=== PATIENT | female | born 1970 | race Caucasian/White ===

== ENCOUNTER 2025-05-28 10:33 | Outpatient (AMB) | payer OTHER, SELFPAY ==
--- NOTE | 2025-05-28 10:37 | A.OFFPC_ITS ---
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 Intake Note: patient here for new patient visit Hand Bookbinder Required: No Is last menstrual period known: No Post menopausal: No Patient : No Allergies No Known Allergies Allergy (Verified 05/28/25 11:06) Medication List - Last Reconciled 05/28/25 by NOLBERTO Guajardo No Known Home Meds Tobacco use date assessed: 05/28/25 Dental Screening Dental Screen Date: 05/28/25 Did you have a dental visit in the last 12 months?: No Did you have a dental problem in the last 6 months where you did not have access to dental care?: No Was dental information given to patient?: No HPI HPI Comments History of Present Illness Details 54 Y/O f with DM2, cataracts, current sm oker, hx of ovarian cancer s/p chemo and surgery, Social: current 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 Health Maintenance DME 05/2025 negative for retinoapthy [facility] Colon ordered today Mammo will get done at [facility] DEXA has never had, ordered today to be done at [place] Pap 2019 at PCP office, negative per report [facility]RI[facility] History of Present Illness - The patient is a 54-year-old female pr esenting as a new patient to [facility], for a CPE and chronic dz mgmt NO MEDICAL RECORDS, OFFICE CLOSED Previous PCP: [facility] - DM2: does not want to take metformin a s her dad had bad effects; was on trulicity - Diagnosed with ovarian ca, surgically removed in 2010, tx w/ chemo; complete oophorectomy in 2011. Considered in remission. Needs new WASH DRILLER - Not on current diabetes medications; h as not seen a switching clerk since 2019. - Cataracts present; no surgery needed c urrently. - Smokes under a pack a day for over 40 years; plans for lung cancer screening. - Reports episodic increased blood press ure under stress - Pinched nerve symptoms present for one week;L arm tingling started 10 days ago comes and goes when leanig FWD can feel it along w pull in upper back Has seen chiro in the past with + effect. Health Maintenance - referral for colonoscopy - Referral for lung cancer screening - Bone density and mammogram screenings needed; to be coordinated with Dionne - Monitoring of non-surgical cataracts - Discussion of diabetes control and nee d for appropriate medication management Review of Systems - Endocrine: Reports Type 2 Diabetes Kim litus; not on current medication - Ophthalmologic: Denies diabetes-relate d eye disease; Reports cataracts - Reproductive: Reports past ovarian can cer; no recent gynecological exams - Cardiovascular: Denies regular hyperte nsion; episodic increased blood pressure with anxiety - Neurological: Reports new pinched nerv e symptom with radiating tingling sensation - Respiratory: Reports smoking history; lung cancer screening planned Physical Exam General: Well developed, well nourished, in no acute distress. Appears stated age. Head: Normocephalic, atraumatic. Eyes: Pupils are equal, round and reactive to light and accommodation. Conjunctivae are clear. Vision grossly normal. Ears: TMs clear AU, EACS WNL Nose: Patent, without discharge. Neck: Supple, no adenopathy or thyromegaly. Breast: Edu on SBE Lungs: Clear to auscultation bilaterally. No rales, rhonchi or wheeze noted. Good air flow in all dowell. Heart: Regular rate and rhythm. No murmurs, click, rubs or gallops are noted. Abdomen: Bowel sounds present in all quadrants. The abdomen is soft, nontender, with no masses or organomegaly noted. No hernias are noted. : Deferred. Reviewed recommendations for routine WASH DRILLER. Pulses: Peripheral pulses are equal and palpable bilaterally. Extremities: No clubbing, cyanosis nor edema is noted. DM foot exam complete - abnormal Neurologic: Gait and station normal. Cranial Nerves 2-12 intact. Motor strength grossly symmetrical and intact. No sensory loss. Balance normal. Skin: No rashes, ulcers, or lesions noted. Turgor is good. Skin color is good. Hair and nails are without abnormalities. Psych: Normal eye contact, affect and mood appropriate, and normal interactions. Patient is alert and appropriate to context. Results - Labs: Glycated Hemoglobin (A1c) at 7.9 % done in office today Discussion Notes I discussed with the patient the management of her Type 2 Diabetes Mellitus, highlighting the importance of glycemic control and reviewing the benefits of oral medications that might serve as alternatives to Trulicity. We talked about injectable and oral hypoglycemic agents like Invokana and Jardiance, emphasizing their non-gastrointestinal side effects, protective benefits for cardiovascular health, and renal advantages. I underscored the importance of maintaining hydration due to their mechanism and discussed DOT physical implications. We also reviewed the patient's previous and ongoing issues, including referrals for comprehensive screenings. She expressed understanding and agreed to the proposed plan for further workup and monitoring. Assessment and Plan 1. Type 2 Diabetes Mellitus - - Monitor renal function. 2. Smoking - Initiate lung cancer screening referra villagomez - Cessation encouraged 3. Ovarian Cancer History - Follow-up with EXPLOSIVE OPERATOR SUPERVISOR for monitoring, new referral today 4. Cataracts - Monitor; no surgery needed now. 5. Blood Pressure, elevated - Re-evaluate in two weeks; consider britt e monitoring. 6. Neuropathy - Focus on glucose control. Check labs today, refer for health maintenance items. Refer to chiro for L upper ext radicular pain I did look and found she can request her medical records from [email or web address] for $35 I will provide this info to her and have her request Patient Instructions - Await follow-up appointments for diagn ostic tests. - Schedule and complete lung cancer scre ening. - Continue attending regular eye exams a nd maintain current health screenings. - Keep hydrated, especially when taking any new diabetes medications. - Monitor any changes in blood pressure; report significant episodes. - Follow up in two weeks for a re-evalua tion of blood pressure. Consent Patient was informed and verbally consented to the use of an ambient scribe for clinic note documentation during this visit. An additional 60 minutes was spent addressing the problem(s) noted at todays visit. This includes time spent before the visit reviewing the chart, time spent during the visit, and time spent after the visit on documentation reviewing laboratory results, diagnostic imaging, medications, performing a medically necessary evaluation, counseling on diagnoses, care coordination, ordering appropriate tests, ordering appropriate medications, review of tests performed by other providers, reporting test results with the patient, communication with other healthcare providers. [facility] Medical History (Updated 05/28/25 @ 12:43 by Jigna Anderson, [facility]) Arthritis Ovarian cancer (~2010) Type 2 diabetes mellitus Surgical History (Updated 05/28/25 @ 11:04 by Lynn Ragsdale MA) History of excision of mass Family History (Updated 05/28/25 @ 11:02 by Lynn Ragsdale MA) Father High blood pressure Diabetes Mother Cancer Maternal Grandfather Cancer Maternal Grandmother Cancer Social History (Updated 05/28/25 @ 10:44 by Lynn Ragsdale MA) [facility]: [facility] Patient Tobacco Use Status: Current everyday Tobacco user Tobacco use type: Cigarette Cigarettes Per Day: 10 e-Cigarette/Vaping Use: Never Used Second Hand Smoke Exposure: No service: No Current occupational status: employed 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 1. Little interest or pleasure in doing things: not at all 2. Feeling down, depressed, or hopeless: not at all 3. Trouble falling or staying asleep, or sleeping too much: not at all 4. Feeling tired or having little energy: not at all 5. Poor appetite or overeating: not at all 6. Feeling bad about yourself - or that you are a failure or have let yourself or your family down: not at all 7. Trouble concentrating on things, such as reading the newspaper or watching television: not at all 8. Moving or speaking so slowly that other people could have noticed. Or the opposite - being so fidgety or restless that you have been moving around a lot more than usual: not at all 9. Thoughts that you would be better off or of hurting yourself in some way: not at all Total score: 0 Depression Screening Interpretation: Negative Depression Screening Done: Yes 26108 - PHQ-9 Billing: Yes Source: Developed by Drs. Jose Nielsen, Daphne Romero, Chilo Desouza and colleagues, with an educational mayra from [employer] Thrive Questionnaire Date Thrive assessed: 05/28/25 I am a: Patient What is your living situation today?: I have a steady place to live Within the past 12 months, did the food you bought not last and you didn't have the money to get more?: Never true Within the past 12 months, did you worry whether your food would run out before you got money to buy more?: Never true Do you have trouble paying for medicines?: I choose not to answer this question Do you have trouble getting transportation to medical appointments?: No Do you have trouble paying your heating and electricity bill?: No Do you have trouble taking care of your child, family member or friend?: No Do you have trouble with day-to-day activities such as bathing, preparing meals, shopping, managing finances, etc.?: No Are you currently unemployed and looking for a job?: No Are you interested in more education?: No Please select the resources that you would like help with: None Currently or been in a relationship where the following occur: No concerns reported THRIVE Score: 0 AUDIT C Alcohol Use Questionnaire (AUDIT-C) 1. How often do you have a drink containing alcohol?: Monthly or less 2. How many drinks containing alcohol do you have on a typical day when you are drinking?: 3 or 4 3. How often do you have six or more drinks on one occasion?: Never Total Score: 2 Score Reviewed/Action Taken: Yes OLIVA-7 AMB Questionnaire OLIVA-7 Date OLIVA - 7 assessed: 05/28/25 Feeling nervous, anxious, or on edge: 0 = Not at all Not being able to stop or control worryin = Not at all Worrying too much about different things: 0 = Not at all Trouble relaxin = Not at all Being so restless that it is hard to sit still: 0 = Not at all Becoming easily annoyed or irritable: 0 = Not at all Feeling afraid as if something awful might happen: 0 = Not at all Total OLIVA-7 score (0-4 normal; 5-9 mild; 10-14 moderate; 15-21 severe): 0 Source: Developed by Drs. Jose Nielsen, Daphne Romero, Chilo Desouza and colleagues, with an educational mayra from [employer] OLIVA-7 Assessment Billing OLIVA-7 Assessment Tool: OLIVA-7 Assessment 17170 Physical exam (Primary Care) Vital Signs: Last Vital Signs Temp 97.9 F 05/28/25 10:45 Pulse 74 05/28/25 10:45 Resp 16 05/28/25 10:45 BP 160/90 H 05/28/25 11:27 Pulse Ox 100 05/28/25 10:45 Oxygen Delivery Method Room Air 05/28/25 10:45 BMI result Body Mass Index 27.6 BMI Assessment/Plan discussion: High BMI High, discussed plan: lifestyle Tobacco/Smoking Status: Tobacco use Status Tobacco use date assessed 05/28/25 05/28/25 10:44 Patient Tobacco Use Status Current everyday Tobacco 05/28/25 10:44 Tobacco use type Cigarette 05/28/25 10:44 e-Cigarette/Vaping Use Never Used 05/28/25 10:44 Are you ready to quit: Yes Tobacco cessation counseling provided: Yes Items discussed: Nicotine replacement, QuitWorks and Other Relapse Prevention: discussed the importance of a supportive environment, discussed extending NRT, discussed negative mood or depression after quitting, weight gain after smoking is common and discussed dietary, exercise and/or lifestyle changes Number of minutes spent counselin CPT code: 66416 - 4-10 Minutes PHQ-9: PHQ-9 Score PHQ-9: Total score 0 05/28/25 11:06 Depression Screening Interpretation: Negative Thrive Assessment: Date of Thrive Assessment Date Thrive assessed 05/28/25 05/28/25 10:40 Currently or been in a relationship where the following occur: No concerns reported Office Procedures Diabetic Foot Exam Details: NORMAL MONOFILAMENT TESTING BILAT; ABNORMAL VIBRATORY SENSATION BILAT, SKIN INTACT G9226 - Diabetic Foot Exam Results AMB Hemoglobin A1c AMB Hemoglobin A1c 7.9 % Last Edit by Lynn Ragsdale MA on 05/28/25 12:22 Results Reviewed Results Reviewed: Laboratory Last Values Hgb A1c (Clinic) 7.9 % (4.0-6.0) H 05/28/25 12:11 Coding Level of Care Code New Pt Level 5 (95071) New Pt Prev Care 40-64y(34951) Diagnoses Encounter to establish care Z76.89 Cataract of both eyes, unspecified cataract type H26.9 Cataract type: unspecified Malignant neoplasm of right ovary C56.1 Laterality: right Tobacco use Z72.0 Screening for lung cancer Z12.2 Menopause Z78.0 Left cervical radiculopathy M54.12 Elevated blood pressure reading in office without diagnosis of hypertension R03.0 Diabetic mononeuropathy associated with type 2 diabetes mellitus E11.41 Diabetes mellitus complication detail: diabetic mononeuropathy Diabetes mellitus type: type 2 Diabetes mellitus type 2 with complications E11.8 Encounter for general adult medical examination with abnormal findings Z00.01 CPT Codes Diabetic Foot Exam - CPT: G9226 - Diabetic Foot Exam ([id number]) Additional Codes OLIVA-7 Assessment Billing - OLIVA-7 Assessment Tool: OLIVA-7 Assessment 30044 ([id number]) PHQ-9 - 11043 - PHQ-9 Billing: Yes ([id number]) Vital Signs *Quality* - CPT code: 28042 - 4-10 Minutes ([id number]) Assessment & Plan Assessment & Plan (1) Encounter to establish care: Code(s): Z76.89 - Persons encountering health services in other specified circumstances (2) Cataracts, bilateral: Code(s): H26.9 - Unspecified cataract Category: Medical Qualifiers: Cataract type: unspecified Qualified Code(s): H26.9 - Unspecified cataract (3) Ovarian cancer: Onset Date: ~2010 Comment: s/p bilat salpingo-oophorectomy and Chemo in remission Code(s): C56.9 - Malignant neoplasm of unspecified ovary Category: Medical Qualifiers: Laterality: right Qualified Code(s): C56.1 - Malignant neoplasm of right ovary (4) Tobacco use: Comment: smokes 18 cigs/day x 45 years LUNG CA SCREENING: REFERRED 05/28/25 Smoking Cessation How to Quit There are a lot of ways to quit smoking and many resources to help you. Family members, friends, and co-workers may be supportive or encouraging, but to be successful the desire and commitment to quit must be your own. Most people who have been able to successfully quit smoking made at least one unsuccessful attempt in the past. Try not to view past attempts to quit as failures, but rather as learning experiences. Stopping smoking or using smokeless tobacco is difficult, but anyone can do it. Know the symptoms to expect when you stop. Common symptoms include: ? An intense craving for nicotine ? Anxiety, tension, restlessness, frustration, or impatience ? Difficulty concentrating ? Drowsiness or trouble sleeping, as well as bad dreams and nightmares ? Drowsiness and trouble sleeping ? Headaches ? Increased appetite and weight gain ? Irritability or depression How severe your symptoms are depends on how long you smoked and how many cigarettes you smoked each day. Feel ready to quit? ? First and foremost, set a quit date and quit completely on that day. Before your quit date, you may begin reducing your cigarette use. But remember, there is no safe level of cigarette smoking. ? List the reasons why you want to quit. Include both short- and long-term benefits. ? Identify the times you are most likely to smoke. For example, do you tend to smoke when feeling stressed or down? When out at night with friends? While drinking coffee or alcohol? When bored? While driving? Right after a meal or sex? During a work break? While watching TV or playing cards? When you are with other smokers? ? Let all of your friends, family, and co-workers know of your plan to stop smoking and your quit date. Just being aware that they know what you're going through can be helpful, especially when you are grumpy. ? Get rid of all your cigarettes just before the quit date, and clean out anything that smells like smoke, such as clothes and furniture. Make a plan about what you will do instead of smoking at those times when you are most likely to smoke. ? Be as specific as possible. For example, drink tea instead of coffee -- tea may not trigger the desire for a cigarette. Or, take a walk when you feel stressed. ? Remove ashtrays and cigarettes from the car. Place pretzels or hard candies there instead. Pretend-smoke with a straw. ? Find activities that focus your hands and mind but are not taxing or fattening. Computer games, solitaire, knitting, sewing, and crossword puzzles may help. ? If you normally smoke after eating, find other ways to end a meal. Play a tape or CD, eat a piece of fruit, get up and make a phone call, or take a walk (a good distraction that also fenton calories). Make other changes in your lifestyle. ? Change your daily schedule and habits. Eat at different times or eat several small meals instead of three large ones. Sit in a different chair or even a different room. ? Satisfy your oral habits by eating celery or other low-calorie snack, chewing sugarless gum, or sucking on a cinnamon stick. ? Go to public places and restaurants where smoking is prohibited or restricted. ? Eat regular meals and don't eat too much candy or sweet things. ? Get more exercise. Take walks or ride a bike. Exercise helps relieve the urge to smoke. Set short-term quitting goals and reward yourself when you meet them. ? Every day, put the money you normally spend on cigarettes in a jar. Then buy something pleasurable after a period of time. ? Try not to think about all the days ahead you will need to avoid smoking. Take it one day at a time. ? Even one puff or one cigarette will make your desire for more cigarettes even stronger. However, it is normal to make mistakes. So even if you have one cigarette, you don't need to take the next one. Other tips to help you quit smoking and stick to it: ? Enroll in a smoking cessation program (hospitals, health departments, community centers, and work sites often offer programs). Learn about self-hypnosis or other techniques. ? Ask your health care provider about prescription medications that are safe and appropriate for you. ? Find out about nicotine patches, gum, and sprays. The [place] [employer]'s web site -- www.cancer.org -- is an excellent resource for smokers who are trying to quit, and the [employer] [place] [employer] can help some smokers kick the habit. Above all, don't get discouraged if you aren't able to quit smoking the first time. Nicotine addiction is a hard habit to break. Try something different next time. Develop new strategies, and try again. Many people take several attempts to finally kick the habit. Code(s): Z72.0 - Tobacco use Category: Social Hx (5) Screening for lung cancer: Code(s): Z12.2 - Encounter for screening for malignant neoplasm of respiratory organs Category: Medical (6) Menopause: Comment: DEXA ORDERED 05/2025 Code(s): Z78.0 - Asymptomatic menopausal state Category: Medical (7) Left cervical radiculopathy: Comment[facility] Code(s): M54.12 - Radiculopathy, cervical region Category: Medical (8) Elevated blood pressure reading in office without diagnosis of hypertension: Comment: REPEAT AT NEXT VISIT Code(s): R03.0 - Elevated blood-pressure reading, without diagnosis of hypertension Category: Medical (9) Diabetic neuropathy: Comment: BLE Code(s): E11.40 - Type 2 diabetes mellitus with diabetic neuropathy, unspecified Category: Medical Qualifiers: Diabetes mellitus complication detail: diabetic mononeuropathy Diabetes mellitus type: type 2 Qualified Code(s): E11.41 - Type 2 diabetes mellitus with diabetic mononeuropathy (10) Diabetes mellitus type 2 with complications: Comment: NEUROPATHY AND HYPERGLYCEMIA DM EYE 05/2025 NEGATIVE RETINOPATHY Code(s): E11.8 - Type 2 diabetes mellitus with unspecified complications Category: Medical (11) Encounter for general adult medical examination with abnormal findings: Onset Date: ~05/28/25 Code(s): Z00.01 - Encounter for general adult medical examination with abnormal findings Category: Medical Plan . Orders: Orders Complete Blood Count no Diff Today E11.9 - Type 2 diabetes mellitus without complications Microalbumin, Random (w Creat) Today E11.9 - Type 2 diabetes mellitus without complications TSH reflex Free T4 Today E11.9 - Type 2 diabetes mellitus without complications AMB Hemoglobin A1c Today E11.9 - Type 2 diabetes mellitus without complications XR DEXA axial skeleton Today Z13.820 - Encounter for screening for osteoporosis, Z78.0 - Asymptomatic menopausal state Comprehensive Met. Panel Today E11.9 - Type 2 diabetes mellitus without complications Lipid Panel Today E11.9 - Type 2 diabetes mellitus without complications Vitamin B12 and Folate Today E11.9 - Type 2 diabetes mellitus without complications Vitamin D 25-OH Total Today E11.9 - Type 2 diabetes mellitus without complications Referrals Lung Cancer Screening Referral Z12.2 - Encounter for screening for malignant neoplasm of respiratory organs, Z72.0 - Tobacco use EXPLOSIVE OPERATOR SUPERVISOR Referral Z12.4 - Encounter for screening for malignant neoplasm of cervix Gastroenterology Referral Z12.11 - Encounter for screening for malignant neoplasm of colon Chiropractic Referral M54.12 - Radiculopathy, cervical region Patient Instructions: Walk-In Care (Urgent Care): We Make it Easy Walk-in for urgent medical issues such as: ? Seasonal Allergies ? Insect Bites ? Cough ? Diarrhea ? Acute Asthma Attacks ? Back, Knee or Joint Pain ? Ear Infection ? Fever without a Rash ? Headaches ? Nausea ? [place] [facility], Rash or Skin Irritation ? Sore Throat ? Sports Physicals ? Vomiting Most insurances are accepted. Patients do not need to be part of the [facility] to seek care at the walk-in clinic. Locations [address] [facility] [place] [address] ? [phone] [facility] Care in [place] provides services to ages 18 and over. Open Sunday-Sunday: 8 a.m. to 5 p.m. and Sunday: 9 a.m. to 3 p.m.* *Hours may vary due to staffing availability. To confirm Walk-In Care hours in [place], please call [phone]. [address] [place] [id number] ? [phone] [facility] in [place] provides services to ages 12 and over. Open Sunday-Sunday: 8 a.m. to 5 p.m. Hours may vary due to staffing availability. To confirm Walk-In Care hours in [place], please call [phone]. LABORATORY SERVICES: [facility] Lab ? Primary Location [address] [place] [address] Sunday through Sunday 6:00 AM ? 5:00 PM Sunday 7:00 AM ? 11:00 AM* [phone] The [facility] Lab is centrally located near the front entrance of the [facility] for easy outpatient access. Convenient parking is provided for outpatients. *Hours may vary due to staffing availability. To confirm Laboratory hours for any location, please call [phone]. Offsite Location For your convenience, we offer offsite laboratory draw stations at the following locations: [address] [place] [address] ? [address], [address] Sunday through Sunday 7:30 AM ? 1:00 PM* [phone] *Hours may vary due to staffing availability. To confirm Laboratory hours for any location, please call [phone]. [place] ? [address] Sunday through Sunday 6:00 AM ? 3:30 PM* Sunday 6:30 AM ? 3 PM* [phone] *Hours may vary due to staffing availability. To confirm Laboratory hours for any location, please call [phone] [place] [address] Sunday through Sunday 7:30 AM ? 4:00 PM* [phone] *Hours may vary due to staffing availability. To confirm Laboratory hours for any location, please call [phone] [place] [address] Sunday through 9:00 AM ? 4:00 PM* *Hours may vary due to staffing availability. To confirm Laboratory hours for any location, please call [phone]. Appointments are not necessary. Walk-ins are welcome. Like all the departments throughout the [facility], our Lab undergoes frequent reviews to ensure the quality and accuracy of test results, and our [facility] takes special pride in its status as a nationally accredited facility. Patient Portal: ONE PATIENT. ONE RECORD. BETTER CARE. [facility] has a fully integrated, cutting- edge mobile electronic health information system that has revolutionized the way we care for our patients and manage our organization. This system improves communication and coordination enabling us to provide safe, higher-quality care, and an overall positive experience for staff and patients. Our first priority, as always, is to deliver the highest quality care possible. The system is running in the background supporting that priority. This portal is for all [facility] and [facility] services and practices. If you are experiencing any technical difficulties with enrolling or logging into the Patient Portal please complete the [facility] Patient Portal Technical Support Form. [facility] and [facility] now offers a new secure on-line interactive tool for patients to review their health information ? ?Patient Portal. This interactive web portal will enable patients and their families to take an active role in their care by providing easy, secure access to their health information via the internet. The Patient Portal provides patients with instant access to their health information, including laboratory results, medications, allergies, demographic information, visit history, and more. In addition to managing their own care, parents and health care proxies with authorized consent will appreciate the ability to access the records of those individuals for whom they provide care. Please note: if you wish to gain access (Proxy) to another patient?s portal, you will be required to come to the Medical Records Department in person at [facility]. Both the patient giving proxy access and the proxy will need to provide photo identification and complete the appropriate authorization. The Patient Portal also allows track their appointments online. The [facility] Patient Portal also saves patients time by allowing them to submit updates to their demographic and contact information prior to their visits. Portal email notifications will also alert patients to any new activity on their portal, such as test results and new appointments. In order to initially enroll in the [facility] Patient Portal, you will need to enter some required information including the following: * your [facility] Medical Record number * your personal home email address * name * date of Please note: In order to enroll in the [facility] Patient Portal, we need to have your email address on file in your electronic medical record. ?The email address needs to be specific for one person (yourself) in order for your Portal enrollment to be successful. ?You can update your email address in person with our Registration staff when you are registering for a hospital visit. ?Otherwise, you will need to come to the Health Information Management (Medical Records) Department at [facility]. ?We are open from Sunday ? Sunday from 7:30 a.m. ? 4:30 p.m. ?You will be required to present a photo id. Once you have successfully enrolled in the Patient Portal, you will receive a one-time user id and password for the Portal, sent to your email address. ?This will allow you to log into the Patient Portal within 99 hrs and reset your own logon id and password, and define personal security questions. ?Once your permanent login and password have been set, you can log into the [facility] Patient Portal at any time via the blue button above or from the Portal Logon button on any page of the [facility] website. [facility] and [facility] encourage all of our patients to enroll in Patient Portal as it presents a valuable opportunity for patients and their families to actively participate in their care and stay healthy Welcome to [facility]. ?We look forward to working with you.
[2025-05-28 10:45] VITALS: BP 203/99; PULSE 74; RESP 16; TEMP 36.6; O2SAT 100; BMI 27.6
[2025-05-28 10:59] VITALS: BP 203/95
--- OUTSIDE RECORDS SUMMARY | 2025-05-28 11:25 | XMS_ITS ---
Author Name [facility] Organization Unknown Care Team Organization Name Specialty Phone Email Start Date End Da te [facility] Termed, PROVIDER Primary Care 09/12/202206/05
[2025-05-28 11:27] VITALS: BP 160/90
== END 2025-05-28 11:38 | disposition home or self-care (01) ==
LOC: HO.HMCFM 10:34
PROVIDERS: PCP Nurse Practitioner Family; Visit Provider Nurse Practitioner Family
DX: Z00.01 Encounter for general adult medical examination with abnormal findings (principal); E11.41 Type 2 diabetes mellitus with diabetic mononeuropathy; C56.1 Malignant neoplasm of right ovary; E11.8 Type 2 diabetes mellitus with unspecified complications; H26.9 Unspecified cataract; Z12.2 Encounter for screening for malignant neoplasm of respiratory organs; Z78.0 Asymptomatic menopausal state; M54.12 Radiculopathy, cervical region; R03.0 Elevated blood-pressure reading, without diagnosis of hypertension; F17.210 Nicotine dependence, cigarettes, uncomplicated

== ENCOUNTER → 2025-05-28 10:33 | Outpatient (BNVA) | payer OTHER, SELFPAY | PROVIDERS: PCP Nurse Practitioner Family; Visit Provider Nurse Practitioner Family | DX: Z00.01 Encounter for general adult medical examination with abnormal findings (principal); Z76.89 Persons encountering health services in other specified circumstances; H26.9 Unspecified cataract; C56.1 Malignant neoplasm of right ovary; M54.12 Radiculopathy, cervical region; R03.0 Elevated blood-pressure reading, without diagnosis of hypertension; E11.41 Type 2 diabetes mellitus with diabetic mononeuropathy; E11.8 Type 2 diabetes mellitus with unspecified complications; Z72.0 Tobacco use; Z78.0 Asymptomatic menopausal state; Z13.31 Encounter for screening for depression; Z13.39 Encounter for screening examination for other mental health and behavioral disorders | CPT/HCPCS: 83036; 96127 ==

== ENCOUNTER 2025-05-28 11:42 | Outpatient (REF) | payer OTHER, SELFPAY ==
[2025-05-28 14:13] LABS: Hematocrit 51.1 % (37.0-47.0); Hemoglobin 16.8 g/dl (12.0-16.0); Mean Corpuscular HGB Conc 32.9 g/dl (31.0-35.0); Mean Corpuscular Hemoglobin 28.5 pg (27.0-33.0); Mean Corpuscular Volume 86.6 fL (80.0-98.0); NRBC Abs Auto 0.000 X10*3/uL (0.0-0.012); NRBC Pct Auto 0.0 /100WBC (0.0-0.2); Platelet Count 274 X10*3/uL (160-400); Red Blood Count 5.90 X10*6/uL (4.20-5.50); White Blood Count 10.2 X10*3/uL (4.8-10.8)
[2025-05-28 14:40] LABS: Microalbum/Creatinine Ratio Ur 20.1 ug/mg cr (<30)
[2025-05-28 14:40] LABS: Alanine Aminotransferase 18 U/L (0-31); Albumin Level 4.8 g/dL (3.5-5.0); Alkaline Phosphatase 103 U/L (39-117); Anion Gap 10 (12-20); Aspartate Amino Transferase 23 U/L (5-31); Blood Urea Nitrogen 12 mg/dL (9-16); Calcium 9.9 mg/dL (8.4-10.2); Carbon Dioxide 27 mmol/L (22-29); Chloride 104 mmol/L (96-108); Cholesterol 218 mg/dL (<200); Estimated Glomerular Filt Rate > 60; HDL Cholesterol 36 mg/dL (>40); Potassium 4.1 mmol/L (3.3-5.1); Sodium 137 mmol/L (135-145); Total Protein 8.1 g/dL (6.5-8.0); Triglycerides 199 mg/dL (<150)
[2025-05-28 14:59] LABS: Folate 5.7 ng/mL (> or = 4.0); Vitamin B12 436 pg/mL (200-900)
== END 2025-05-28 11:43 | disposition home or self-care (01) ==
LOC: HO.WFDLDS 11:42
PROVIDERS: Visit Provider Nurse Practitioner Family
DX: E11.9 Type 2 diabetes mellitus without complications (principal)
CPT/HCPCS: 36415; 80053; 80061; 82043; 82306; 82570; 82607; 82746; 84443; 85027

== ENCOUNTER 2025-06-16 09:43 | Outpatient (AMB) | payer OTHER, SELFPAY ==
--- NOTE | 2025-06-16 09:51 | MHC.PC.OV ---
Vital Signs 06/16/25 09:56 Height 5 ft 7 in Weight 175 lb BMI 27.4 BP 148/80 H Blood Pressure Location Lt brachial Position Sitting Respiration 13 Pulse 88 Pulse Source Pulse Oximeter Temp 97.0 F Temp Source Oral Pulse Oximetry (%) 98 Oxygen Delivery Method Room Air Intake Visit Reasons: 2 weeks 30 min BP recheck Intake Note: Follow up on BP. Patient is requesting naproxen for px. Patient Jardiance has been denied twice. Oil Pumper Required: No Allergies No Known Allergies Allergy (Verified 06/16/25 10:19) Medication List - Last Reconciled 06/16/25 by Jigna Anderson, [employer]- cetirizine 10 mg PO DAILY Tobacco use date assessed: 06/16/25 Dental Screening Dental Screen Date: 06/16/25 Did you have a dental visit in the last 12 months?: Yes Did you have a dental problem in the last 6 months where you did not have access to dental care?: No Was dental information given to patient?: Patient has dentist HPI HPI Comments History of Present Illness Details 54 Y/O f with DM2, cataracts, current smoker, hx of ovarian cancer s/p chemo and surgery, HLD, elevated BP Social: current smoker; 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 Health Maintenance DME 05/2025 negative for retinoapthy [facility] Colon ordered today Mammo will get done at [facility] DEXA has never had, ordered today to be done at [place] [facility] 2019 at PCP office, negative per report [facility] [employer]PER[employer] GI History of Present Illness - The patient is a 54-year-old female presenting with a follow-up for blood pressure management and diabetes medication review. - Essential Hypertension: Persistent elevation noted; past measurements in 160s, current 148/80; patient reports white coat hypertension. Taking OTC supplements to help; does not want to take meds. ACEI and ARB reviewed today; declined. - Type 2 Diabetes Mellitus: Difficulty obtaining Jardiance due to insurance; previously tried metformin, glyburide with minimal effect; & Trulicity. - Hyperlipidemia: Recent labs show elevated cholesterol; does not want to take medications; ok w/ supplements. Reducing cigarette intake using a flavored air alternative. - Musculoskeletal Complaint: Left arm, fingertip numbness, related to back pain; chiropractor visit scheduled today. used naproxen 500mg in the past + effect, would like refill - Allergies controlled on cetrizine; needs refill - [facility] records requested; not rec'd yet Review of Systems - Cardiovascular: Reports elevated blood pressure levels. - Neurological: Reports numbness in the left arm and fingertips. - Endocrinology: Reports issues with blood sugar management. - Musculoskeletal: Reports back pain. - Allergies/Immunology: History of previous cetirizine use instead of Zyrtec. Physical Exam General: Well developed, well nourished, in no acute distress. Appears stated age. Head: Normocephalic, atraumatic. Eyes: Pupils are equal, round and reactive to light and accommodation. Conjunctivae are clear. Vision grossly normal. Lungs: Clear to auscultation bilaterally. No rales, rhonchi or wheeze noted. Good air flow in all dowell. Heart: Regular rate and rhythm. No murmurs, click, rubs or gallops are noted. Pulses: Peripheral pulses are equal and palpable bilaterally. Extremities: No clubbing, cyanosis nor edema is noted. Psych: Mood and affect appropriate Results see below 05/2025 - Labs: Recent cholesterol levels were slightly elevated; other labs, including thyroid and kidney function, were normal. - Labs: Recent cholesterol levels were slightly elevated; other labs, including thyroid and kidney function, were normal. Discussion Notes The patient and I discussed her elevated blood pressure and the potential consequences of uncontrolled hypertension on her kidneys, eyes, and heart. I recommended starting a low-dose antihypertensive to help with both blood pressure control and renal protection due to diabetes, mentioning lisinopril or losartan as options. We spoke about the insurance issues regarding her diabetes medications and I suggested a possible referral to endocrinology for a specialized opinion, which might influence her insurance's reassessment of coverage. We discussed lifestyle changes and support for hyperlipidemia, introducing the option of Fayette bergamot as a natural remedy. I have refilled her cetirizine and naproxen prescriptions. The need for a repeat cholesterol panel and comprehensive review in three months was communicated, and the patient consented to all recommendations. Patient was given time to ask questions. All questions were answered to their satisfaction. Assessment and Plan 1. Essential Hypertension - Low-dose antihypertensive recommended. Declined - cont supplements and home monitoring - Follow-up in three months with labs. 2. Type 2 Diabetes Mellitus - Endocrinology referral d/t insurance issues w/ meds 3. Hyperlipidemia - Diet modification encouraged. - Trial Fayette bergamot. - Cholesterol check in three months. 4. Musculoskeletal Complaint - Chiropractic visit scheduled. - refill naproxen. 5. smoking cessation applauded, cont alternative measures 6. allergies, cetrizine RX sent in as requested. Patient Instructions - Start a low-dose antihypertensive as prescribed. - Monitor blood pressure at home and record readings. - Make dietary changes to reduce cholesterol; eat more vegetables and fiber, and less sugar. - Start Fayette bergamot as instructed. - Visit the chiropractor as scheduled. - Take naproxen and cetirizine as prescribed. - Return for lab work and follow-up visit in three months, sooner PRN Consent Patient was informed and verbally consented to the use of an ambient scribe for clinic note documentation during this visit. Total time spent caring for the patient today was 40 minutes. This includes time spent before the visit reviewing the chart, time spent during the visit, and time spent after the visit on documentation, reviewing laboratory results, diagnostic imaging, medications, performing a medically necessary evaluation, counseling on diagnoses, care coordination, ordering appropriate tests, ordering appropriate medications, review of tests performed by other providers, reporting test results with the patient, communication with other healthcare providers. [facility] Medical History (Updated 06/16/25 @ 10:44 by Jigna Anderson, [facility]) Arthritis Ovarian cancer (~2010) Type 2 diabetes mellitus Surgical History (Updated 05/28/25 @ 11:04 by Lynn Ragsdale MA) History of excision of mass Family History (Updated 05/28/25 @ 11:02 by Lynn Ragsdale MA) Father High blood pressure Diabetes Mother Cancer Maternal Grandfather Cancer Maternal Grandmother Cancer Social History (Updated 05/28/25 @ 10:44 by Lynn Ragsdale MA) Housing: Other ([facility] home) Patient Tobacco Use Status: Current everyday Tobacco user Tobacco use type: Cigarette Cigarettes Per Day: 10 e-Cigarette/Vaping Use: Never Used Second Hand Smoke Exposure: No service: No Current occupational status: employed 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 1. Little interest or pleasure in doing things: not at all 2. Feeling down, depressed, or hopeless: not at all 3. Trouble falling or staying asleep, or sleeping too much: not at all 4. Feeling tired or having little energy: not at all 5. Poor appetite or overeating: not at all 6. Feeling bad about yourself - or that you are a failure or have let yourself or your family down: not at all 7. Trouble concentrating on things, such as reading the newspaper or watching television: not at all 8. Moving or speaking so slowly that other people could have noticed. Or the opposite - being so fidgety or restless that you have been moving around a lot more than usual: not at all 9. Thoughts that you would be better off or of hurting yourself in some way: not at all Total score: 0 Depression Screening Interpretation: Negative Depression Screening Done: Yes 40654 - PHQ-9 Billing: Yes Source: Developed by Drs. Jose Nielsen, Daphne Romero, Chilo Desouza and colleagues, with an educational mayra from [employer] Thrive Questionnaire Date Thrive assessed: 06/16/25 I am a: Patient What is your living situation today?: I have a steady place to live Within the past 12 months, did the food you bought not last and you didn't have the money to get more?: Never true Within the past 12 months, did you worry whether your food would run out before you got money to buy more?: Never true Do you have trouble paying for medicines?: I choose not to answer this question Do you have trouble getting transportation to medical appointments?: No Do you have trouble paying your heating and electricity bill?: No Do you have trouble taking care of your child, family member or friend?: No Do you have trouble with day-to-day activities such as bathing, preparing meals, shopping, managing finances, etc.?: No Are you currently unemployed and looking for a job?: No Are you interested in more education?: No Please select the resources that you would like help with: None Currently or been in a relationship where the following occur: No concerns reported THRIVE Score: 0 OLIVA-7 AMB Questionnaire OLIVA-7 Date OLIVA - 7 assessed: 06/16/25 Feeling nervous, anxious, or on edge: 0 = Not at all Not being able to stop or control worryin = Not at all Worrying too much about different things: 0 = Not at all Trouble relaxin = Not at all Being so restless that it is hard to sit still: 0 = Not at all Becoming easily annoyed or irritable: 0 = Not at all Feeling afraid as if something awful might happen: 0 = Not at all Total OLIVA-7 score (0-4 normal; 5-9 mild; 10-14 moderate; 15-21 severe): 0 Source: Developed by Drs. Jose Nielsen, Daphne Romero, Chilo Desouza and colleagues, with an educational mayra from [employer] OLIVA-7 Assessment Billing OLIVA-7 Assessment Tool: OLIVA-7 Assessment 50227 Physical exam (Primary Care) Vital Signs: Last Vital Signs Temp 97.0 F 06/16/25 09:56 Pulse 88 06/16/25 09:56 Resp 13 06/16/25 09:56 BP 148/80 H 06/16/25 09:56 Pulse Ox 98 06/16/25 09:56 Oxygen Delivery Method Room Air 06/16/25 09:56 BMI result Body Mass Index 27.4 Tobacco/Smoking Status: Tobacco use Status Tobacco use date assessed 06/16/25 06/16/25 09:53 Patient Tobacco Use Status Current everyday Tobacco 06/16/25 09:53 Tobacco use type Cigarette 06/16/25 09:53 e-Cigarette/Vaping Use Never Used 06/16/25 09:53 Are you ready to quit: Yes Tobacco cessation counseling provided: Yes Items discussed: Nicotine replacement, QuitWorks and Other Relapse Prevention: discussed the importance of a supportive environment, discussed extending NRT, discussed negative mood or depression after quitting, weight gain after smoking is common and discussed dietary, exercise and/or lifestyle changes Number of minutes spent counselin CPT code: 75701 - 4-10 Minutes PHQ-9: PHQ-9 Score PHQ-9: Total score 0 06/16/25 09:53 Depression Screening Interpretation: Negative Thrive Assessment: Date of Thrive Assessment Date Thrive assessed 06/16/25 06/16/25 09:53 Currently or been in a relationship where the following occur: No concerns reported Results Reviewed Results Reviewed: 05/28/25 Laboratory Result Units Range Interpretation Provider Comments White Blood Count 10.2 X10*3/uL (4.8-10.8) Red Blood Count 5.90 X10*6/uL (4.20-5.50) High Hemoglobin 16.8 g/dl (12.0-16.0) High Hematocrit 51.1 % (37.0-47.0) High Mean Corpuscular Volume 86.6 fL (80.0-98.0) Mean Corpuscular Hemoglobin 28.5 pg (27.0-33.0) Mean Corpuscular Hemoglobin Concent 32.9 g/dl (31.0-35.0) Red Cell Distribution Width 14.1 % (11.0-16.0) Platelet Count 274 X10*3/uL (160-400) Mean Platelet Volume 10.6 fL (9.4-12.3) Nucleated RBC Absolute Count (auto) 0.000 X10*3/uL (0.0-0.012) Nucleated Red Blood Cells % (auto) 0.0 /100WBC (0.0-0.2) Sodium Level 137 mmol/L (135-145) Potassium Level 4.1 mmol/L (3.3-5.1) Chloride Level 104 mmol/L (96-108) Carbon Dioxide Level 27 mmol/L (22-29) Anion Gap 10 (12-20) Low Blood Urea Nitrogen 12 mg/dL (9-16) Creatinine 0.61 mg/dL (0.5-1.4) Estimated Creatinine Clearance Calc Not Reportable Estimat Glomerular Filtration Rate > 60 Random Glucose 160 mg/dL (60-115) High Calcium Level 9.9 mg/dL (8.4-10.2) Total Bilirubin 0.8 mg/dL (0.0-1.0) Aspartate Amino Transf (AST/SGOT) 23 U/L (5-31) Alanine Aminotransferase (ALT/SGPT) 18 U/L (0-31) Alkaline Phosphatase 103 U/L (39-117) Total Protein 8.1 g/dL (6.5-8.0) High Albumin 4.8 g/dL (3.5-5.0) Triglycerides Level 199 mg/dL (<150) High Cholesterol Level 218 mg/dL (<200) High LDL Cholesterol, Calculated 143 mg/dL (<100) High HDL Cholesterol 36 mg/dL (>40) Low Vitamin B12 Level 436 pg/mL (200-900) 25-Hydroxy Vitamin D Total 71.9 ng/mL (>30) Folate 5.7 ng/mL (> or = 4.0) Thyroid Stimulating Hormone (TSH) 1.52 uIU/mL (0.32-4.0) Urine Creatinine 69.40 mg/dL Urine Microalbumin 14.0 mg/L Urine Microalbumin/Creatinine Ratio 20.1 ug/mg cr (<30) Coding Level of Care Code Est Pt Level 5 (27253) Complex EM visit Add On G2211 Diagnoses Diabetes mellitus type 2 with complications E11.8 Mixed hyperlipidemia E78.2 Hyperlipidemia type: mixed hyperlipidemia Elevated blood pressure reading in office without diagnosis of hypertension R03.0 Tobacco use Z72.0 Left cervical radiculopathy M54.12 Environmental allergies Z91.09 Additional Codes OLIVA-7 Assessment Billing - OLIVA-7 Assessment Tool: OLIVA-7 Assessment 88530 ([id number]) PHQ-9 - 53248 - PHQ-9 Billing: Yes ([id number]) Vital Signs *Quality* - CPT code: 70777 - 4-10 Minutes ([id number]) Assessment & Plan Assessment & Plan (1) Diabetes mellitus type 2 with complications: Comment: NEUROPATHY AND HYPERGLYCEMIA DM EYE 05/2025 NEGATIVE RETINOPATHY Code(s): E11.8 - Type 2 diabetes mellitus with unspecified complications Category: Medical (2) HLD (hyperlipidemia): Comment: will trial citrus bergamot Code(s): E78.5 - Hyperlipidemia, unspecified Category: Medical Qualifiers: Hyperlipidemia type: mixed hyperlipidemia Qualified Code(s): E78.2 - Mixed hyperlipidemia (3) Elevated blood pressure reading in office without diagnosis of hypertension: Comment: Beet Extract and Oil of Oregano to help Prefers natural methods Code(s): R03.0 - Elevated blood-pressure reading, without diagnosis of hypertension Category: Medical (4) Tobacco use: Comment: smokes 18 cigs/day x 45 years LUNG CA SCREENING: REFERRED 05/28/25 Smoking Cessation How to Quit There are a lot of ways to quit smoking and many resources to help you. Family members, friends, and co-workers may be supportive or encouraging, but to be successful the desire and commitment to quit must be your own. Most people who have been able to successfully quit smoking made at least one unsuccessful attempt in the past. Try not to view past attempts to quit as failures, but rather as learning experiences. Stopping smoking or using smokeless tobacco is difficult, but anyone can do it. Know the symptoms to expect when you stop. Common symptoms include: ? An intense craving for nicotine ? Anxiety, tension, restlessness, frustration, or impatience ? Difficulty concentrating ? Drowsiness or trouble sleeping, as well as bad dreams and nightmares ? Drowsiness and trouble sleeping ? Headaches ? Increased appetite and weight gain ? Irritability or depression How severe your symptoms are depends on how long you smoked and how many cigarettes you smoked each day. Feel ready to quit? ? First and foremost, set a quit date and quit completely on that day. Before your quit date, you may begin reducing your cigarette use. But remember, there is no safe level of cigarette smoking. ? List the reasons why you want to quit. Include both short- and long-term benefits. ? Identify the times you are most likely to smoke. For example, do you tend to smoke when feeling stressed or down? When out at night with friends? While drinking coffee or alcohol? When bored? While driving? Right after a meal or sex? During a work break? While watching TV or playing cards? When you are with other smokers? ? Let all of your friends, family, and co-workers know of your plan to stop smoking and your quit date. Just being aware that they know what you're going through can be helpful, especially when you are grumpy. ? Get rid of all your cigarettes just before the quit date, and clean out anything that smells like smoke, such as clothes and furniture. Make a plan about what you will do instead of smoking at those times when you are most likely to smoke. ? Be as specific as possible. For example, drink tea instead of coffee -- tea may not trigger the desire for a cigarette. Or, take a walk when you feel stressed. ? Remove ashtrays and cigarettes from the car. Place pretzels or hard candies there instead. Pretend-smoke with a straw. ? Find activities that focus your hands and mind but are not taxing or fattening. Computer games, solitaire, knitting, sewing, and crossword puzzles may help. ? If you normally smoke after eating, find other ways to end a meal. Play a tape or CD, eat a piece of fruit, get up and make a phone call, or take a walk (a good distraction that also fenton calories). Make other changes in your lifestyle. ? Change your daily schedule and habits. Eat at different times or eat several small meals instead of three large ones. Sit in a different chair or even a different room. ? Satisfy your oral habits by eating celery or other low-calorie snack, chewing sugarless gum, or sucking on a cinnamon stick. ? Go to public places and restaurants where smoking is prohibited or restricted. ? Eat regular meals and don't eat too much candy or sweet things. ? Get more exercise. Take walks or ride a bike. Exercise helps relieve the urge to smoke. Set short-term quitting goals and reward yourself when you meet them. ? Every day, put the money you normally spend on cigarettes in a jar. Then buy something pleasurable after a period of time. ? Try not to think about all the days ahead you will need to avoid smoking. Take it one day at a time. ? Even one puff or one cigarette will make your desire for more cigarettes even stronger. However, it is normal to make mistakes. So even if you have one cigarette, you don't need to take the next one. Other tips to help you quit smoking and stick to it: ? Enroll in a smoking cessation program (hospitals, health departments, community centers, and work sites often offer programs). Learn about self-hypnosis or other techniques. ? Ask your health care provider about prescription medications that are safe and appropriate for you. ? Find out about nicotine patches, gum, and sprays. The [place] [employer]'s web site -- www.cancer.org -- is an excellent resource for smokers who are trying to quit, and the [employer] [place] [employer] can help some smokers kick the habit. Above all, don't get discouraged if you aren't able to quit smoking the first time. Nicotine addiction is a hard habit to break. Try something different next time. Develop new strategies, and try again. Many people take several attempts to finally kick the habit. Code(s): Cristy72.0 - Tobacco use Category: Social Hx (5) Left cervical radiculopathy: Comment: REFER TO CHIRO Code(s): M54.12 - Radiculopathy, cervical region Category: Medical (6) Environmental allergies: Code(s): Z91.09 - Other allergy status, other than to drugs and biological substances Category: Medical Plan . Orders: Orders Lipid Panel 3 Months E11.8 - Type 2 diabetes mellitus with unspecified complications, E78.2 - Mixed hyperlipidemia Comprehensive Met. Panel 3 Months E11.8 - Type 2 diabetes mellitus with unspecified complications, E78.2 - Mixed hyperlipidemia Referrals Endocrinology Referral E11.8 - Type 2 diabetes mellitus with unspecified complications Medications: New cetirizine 10 mg PO DAILY 90 tabs 2RF naproxen 500 mg PO BID PRN 180 tabs 2RF pain Patient Instructions: Fayette Bergamot 1000mg Daily To reduce low-density lipoprotein (LDL) cholesterol, you can try making lifestyle changes to your diet, exercise, and other habits: Eat a heart-healthy diet Limit saturated and trans fats, and eat more foods with healthy fats, like nuts, seeds, and unsaturated oils. You can also try eating more soluble fiber, which can help reduce the amount of cholesterol your body absorbs. Foods high in soluble fiber include whole grains, fruits, and legumes. Exercise regularly Aim for at least 150 minutes of exercise per week, such as walking, swimming, or cycling. Maintain a healthy weight Losing weight can help lower LDL cholesterol, especially if you are overweight or obese. Manage stress Chronic stress can raise LDL cholesterol, so try to find healthy ways to manage it. Quit smoking Smoking can raise cholesterol and increase the risk of serious health problems. Get enough sleep Aim for 7 to 9 hours of sleep per night. You should also limit foods with cholesterol, which are found in animal products like liver, egg yolks, and whole milk dairy products.
[2025-06-16 09:56] VITALS: BP 148/80; PULSE 88; RESP 13; TEMP 36.1; O2SAT 98; BMI 27.4
== END 2025-06-16 10:38 | disposition home or self-care (01) ==
LOC: HO.HMCFM 09:44
PROVIDERS: PCP Nurse Practitioner Family; Visit Provider Nurse Practitioner Family
DX: E11.8 Type 2 diabetes mellitus with unspecified complications (principal); E78.2 Mixed hyperlipidemia; R03.0 Elevated blood-pressure reading, without diagnosis of hypertension; F17.210 Nicotine dependence, cigarettes, uncomplicated; M54.12 Radiculopathy, cervical region; Z91.09 Other allergy status, other than to drugs and biological substances

== ENCOUNTER → 2025-06-16 09:43 | Outpatient (BNVA) | payer OTHER, SELFPAY | PROVIDERS: PCP Nurse Practitioner Family; Visit Provider Nurse Practitioner Family | DX: E11.9 Type 2 diabetes mellitus without complications (principal); E78.2 Mixed hyperlipidemia; I10 Essential (primary) hypertension; M54.9 Dorsalgia, unspecified; R03.0 Elevated blood-pressure reading, without diagnosis of hypertension; M54.12 Radiculopathy, cervical region; F17.210 Nicotine dependence, cigarettes, uncomplicated; Z91.09 Other allergy status, other than to drugs and biological substances | CPT/HCPCS: 96127 ==

== ENCOUNTER 2025-07-10 10:36 | Outpatient (AMB) | payer OTHER, SELFPAY ==
--- NOTE | 2025-07-10 10:52 | MHC.OFFVIS ---
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 Endo: She was diagnosed with diabetes around 2016. Around that time she was 259 lb and she has lost about 85 lb with diet and exercise. She was also put on Trulicity which she found very effective for her diabetes. She says that she did not have any adverse effects with this medication. She was previously tried glyburide but was ineffective and caused dizziness. She took her father's metformin a couple times and had GI upset. She was effectively treated with trulicity. She is up-to-date with ophthalmology and states that she does not have any changes in the eye. CV: Blood pressure today in the office is 178/100. She is not currently on any antihypertensives. She says that she has never been on antihypertensives but her blood pressure has been borderline in the past. She says when she was on Trulicity in the past that seemed like everything got better. [facility] Medical History (Updated 07/10/25 @ 11:28 by Mitra Davis PA-C) Arthritis Type 2 diabetes mellitus Ovarian cancer (~2010) Surgical History History of excision of mass Family History Father High blood pressure Diabetes Mother Cancer Maternal Grandfather Cancer Maternal Grandmother Cancer Social History Housing: Other (mobil home) Patient Tobacco Use Status: Current everyday Tobacco user Tobacco use type: Cigarette Cigarettes Per Day: 10 e-Cigarette/Vaping Use: Never Used Second Hand Smoke Exposure: No service: No Current occupational status: employed 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 Current occupational exposures/hazards: No Cognitive needs: No Hearing needs: No Vision needs: Yes Physical Exam Vital Signs: Last Vital Signs Pulse 84 07/10/25 10:59 BP 178/100 H 07/10/25 10:59 Pulse Ox 98 07/10/25 10:59 Oxygen Delivery Method Room Air 07/10/25 10:59 BMI result Body Mass Index 27.6 Const Orientation/consciousness: patient oriented x3 Neck Neck: Yes no lymphadenopathy Thyroid: Thyroid normal Carotids: no bruits Resp Auscultation: clear to auscultation bilaterally Cardio Rate: regular rate Rhythm: regular rhythm Heart sounds: S1 normal heart sound present and S2 normal heart sound present Peripheral pulses: dorsalis pedis present Neuro General: patient oriented x3, gait normal and no focal motor deficits Extrem Other: Monofilament sensation intact bilaterally. Vibratory sensation intact bilaterally. Skin intact. General: Yes normal to inspection Results Reviewed Results Reviewed: Laboratory Last Values Glucose (Clinic) 316 mg/dL (60-115) H 07/10/25 11:04 Assessment & Plan Assessment & Plan (1) Diabetes mellitus type 2 with complications: Comment: NEUROPATHY AND HYPERGLYCEMIA DM EYE 05/2025 NEGATIVE RETINOPATHY Code(s): E11.8 - Type 2 diabetes mellitus with unspecified complications Category: Medical Plan: We spent 75 minutes in direct patient care, [id number] time, coordination of care, chart review, and note dictation. We reviewed the pathophysiology of type 2 diabetes, complications associated with diabetes including but not limited to blindness, amputation wrists, kidney disease, increased risk of stroke and heart attack etc.. We will start Trulicity. Discussed risks and benefits and adverse effects of this medication. She reports having testing supplies at home. We reviewed rule of 15 and how to treat low blood sugars. Reviewed signs and symptoms of hyper and hypoglycemia that would require emergent medical treatment (2) HTN (hypertension): Code(s): I10 - Essential (primary) hypertension Category: Medical Plan: Elevated today. Currently asymptomatic. We will start lisinopril. We reviewed risks and benefits and adverse effects of this medication. Short term follow up arranged. Labs prior to appointment. Orders: Orders Basic Metabolic Panel Today E11.8 - Type 2 diabetes mellitus with unspecified complications, I10 - Essential (primary) hypertension Hemoglobin A1c Today E11.8 - Type 2 diabetes mellitus with unspecified complications, I10 - Essential (primary) hypertension, R73.01 - Impaired fasting glucose Microalbumin, Random (w Creat) Today E11.8 - Type 2 diabetes mellitus with unspecified complications, I10 - Essential (primary) hypertension Medications: New dulaglutide (Trulicity) 0.75 mg (0.5 mL) subcut QWEEK 2 mL 5RF lisinopril 10 mg PO DAILY 90 tabs 0RF Coding Level of Care Code New Pt Level 5 (24474) Complex EM visit Add On G2211 Diagnoses Diabetes mellitus type 2 with complications E11.8 HTN (hypertension) I10
[2025-07-10 10:59] VITALS: BP 178/100; PULSE 84; O2SAT 98; BMI 27.6
[2025-07-10 11:08] LABS: Glucose, Whole Blood 316 mg/dL (60-115)
== END 2025-07-10 11:33 | disposition home or self-care (01) ==
LOC: HO.ENCR 10:37
PROVIDERS: PCP Nurse Practitioner Family; Visit Provider Physician Assistant
DX: E11.8 Type 2 diabetes mellitus with unspecified complications (principal); I10 Essential (primary) hypertension

== ENCOUNTER → 2025-07-10 10:36 | Outpatient (BNVA) | payer OTHER, SELFPAY | PROVIDERS: PCP Nurse Practitioner Family; Visit Provider Physician Assistant | DX: E11.65 Type 2 diabetes mellitus with hyperglycemia (principal); I10 Essential (primary) hypertension | CPT/HCPCS: 82947 ==

== ENCOUNTER 2025-09-25 09:57 | Outpatient (AMB) | payer OTHER, SELFPAY ==
--- NOTE | 2025-09-25 08:03 | A.OFFVIS_ITS ---
Intake Visit Reasons: Current Smoker Allergies No Known Allergies Allergy (Verified 07/10/25 11:02) HPI HPI Current Smoker: Details: Initial visit for this 55yo smoker with a 35PYH. Patient started smoking at age 11 for 44 years at 3/4-1ppd. Currently 3/4ppd. . Denies marijuana use. Denies second hand smoke exposure. Denies exposure to chemicals or substances like asbestos. . Denies known family history of lung cancer. Reports personal history of Ovarian cancer. s/p bilateral salpingo-oophorectomy and Chemo- in remission - 2010. Denies chest CT in last year. . Denies recent travel outside the [place]. Denies recent respiratory illness or recent hospitalization for respiratory issues. Denies testing positive for COVID. Denies receiving COVID Vaccine. . Denies fever, chills, new/worsening cough, hemoptysis, hoarseness or dysphagia. Denies significant chest pain, significant dyspnea or unintentional weight loss. Patient Lung Cancer Screening Questionnaire reviewed with patient by provider. . Shared Decision Making Completed. Patient meets criteria. Discussed in detail with patient, the risk vs benefit of LDCT screening. Patient consents to proceed with scan. Discussed smoking cessation. . Patient does report snoring. She has multiple risk factors for MENDY including >50yo, DM2, new HTN, smoking. We discussed that she discuss sleep study with PCP to further assess for sleep apnea. [facility] Medical History (Updated 09/25/25 @ 10:28 by Tania Pringle PA-C) HTN (hypertension) History of ovarian cancer (~2010) Nicotine dependence, cigarettes, uncomplicated Arthritis Type 2 diabetes mellitus Surgical History (Updated 09/25/25 @ 10:11 by Tania Pringle PA-C) History of left salpingo-oophorectomy History of right salpingo-oophorectomy History of appendectomy Family History (Updated 09/25/25 @ 10:28 by Tania Pringle PA-C) Father High blood pressure Diabetes Mother Cancer Sleep apnea Maternal Grandfather Cancer Maternal Grandmother Cancer Social History [facility]: Other ([email or web address]) Patient Tobacco Use Status: Current everyday Tobacco user Tobacco use type: Cigarette Cigarettes Per Day: 10 e-Cigarette/Vaping Use: Never Used Second Hand Smoke Exposure: No service: No Current occupational status: employed 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 - Patient meets criteria for LDCT for lung cancer screening purposes and is asymptomatic. - Smoking cessation counseling offered. Patients can always call [phone]. - Will arrange for a LDCT scan of the chest for screening purposes at [facility]. - Risks, benefits, and alternatives were discussed in detail and the patient agrees to proceed. - Risks discussed include but are not limited to: radiation exposure, anxiety during testing and while awaiting results, false negatives, false positives and possibility of additional intervention such as further imaging or surgical procedures for benign disease. - Benefits are obviously detection of lung cancer at an early stage which can lead to improved outcomes. - Discussed the importance of screening program compliance with adherence to yearly LDCT scan as scheduled - or sooner interval scans for personalized screening regimen. - Discussed follow up plan. Our office will send a letter discussing results and if needed set up phone call and office visit based on CT findings. - Patient educated on results categorization and the management decisions for suspicious findings potentially found on the screening LDCT scan. Any patient with a Lung RADS score of 3 or 4 will be reviewed by a multidisciplinary team at [facility] to form a plan of action in regards to scan findings. - If further work up is warranted for a suspicious lung finding this will be followed by the Lung Cancer Screening program in conjunction with the Thoracic Surgery Department at [facility]. - A copy of the office note and LDCT will be sent to the patient's PCP - as well as documentation on any associated further plans of care. - Incidental findings on LDCT are the PCP's responsibility. These findings are indicated with an S finding on the LDCT Assessment. A note discussing the findings will be sent to the PCP who is then responsible for further management. - All questions answered.? Coding Level of Care Code Lung Cancer Screening G0296 Diagnoses Nicotine dependence, cigarettes, uncomplicated F17.210
== END 2025-09-25 10:41 | disposition home or self-care (01) ==
LOC: HO.HPS 09:58
PROVIDERS: PCP Nurse Practitioner Family; Referring Provider Nurse Practitioner Family; Visit Provider Physician Assistant Medical
DX: F17.210 Nicotine dependence, cigarettes, uncomplicated (principal)
CPT/HCPCS: G0296

== ENCOUNTER 2025-09-25 10:23 | Outpatient (REF) | payer OTHER, SELFPAY ==
--- NOTE | ~2025-09-25 | CT_ITS ---
EXAMINATION: CT LOW-DOSE SCREENING CHEST WITHOUT CONTRAST CLINICAL INFORMATION: 55-year-old female, current smoker, 43 pack years, lung cancer screening. COMPARISON: None available. TECHNIQUE: Multidetector volumetric CT imaging of the chest is performed on a Siemens SOMATOM Definition scanner without contrast using low dose technique. Additional 2D coronal and sagittal reformatted images and axial 3D maximum intensity projection (MIP) images are generated on the CT workstation. This CT examination was performed using dose optimization techniques as appropriate, variously including the following: *Automated exposure control *Adjustment of mA and/or kV according to patient size (this includes techniques or standardized protocols for targeted exams where dose is matched to indication/reason for exam; i.e. extremities or head) *Use of iterative reconstruction technique FINDINGS: PULMONARY NODULES: 3 mm nodule right apex (series 3, image 64). 2 mm nodule right apex (series 3, image 70). LUNGS: Lungs well inspired. Mild paraseptal emphysema is present. Lungs otherwise clear. No abnormal opacities. Small airways appear normal. No effusion or pneumothorax. MEDIASTINUM: There is mild global enlargement of the thyroid gland with a macrocalcification in the inferior left gland. There is no mediastinal lymphadenopathy or mass. The aorta is mildly calcified but normal in caliber. There is no aneurysm. The main pulmonary trunk is normal in size. The heart size is normal. No pericardial effusion. Central airways are patent. No esophageal abnormality. CORONARY ARTERY CALCIFICATION: No significant calcification. CHEST WALL/AXILLA: No masses or abnormal lymph nodes. UPPER ABDOMEN: Included portions of the solid organs in the upper abdomen unremarkable on noncontrast imaging. OSSEOUS STRUCTURES: No suspicious lytic or blastic bone lesions. Mild spinal degenerative changes present. CT/CT lung screening IMPRESSION: 1. There are 2 tiny pulmonary nodules in the right apex, the larger measuring 3 mm. No suspicious nodules present. 2. There is mild paraseptal emphysema. There is no active lung disease. ASSESSMENT: 1. Lung-RADS Category 2: Benign appearance or behavior of nodules. 2. Lung-RADS Category S: None. RECOMMENDATION: Continued routine annual low-dose CT lung screening in 1 year is recommended. An order for CT CHEST LOW DOSE CANCER SCREENING ([id number]) can be placed. Electronically signed by: Dylan Robert MD 09/25/2025 11:45 ROSIO VEGAS RP Workstation: [id number]
== END 2025-09-25 10:24 | disposition home or self-care (01) ==
LOC: HO.CT 10:23
PROVIDERS: PCP Nurse Practitioner Family; Visit Provider Physician Assistant Medical
DX: Z12.2 Encounter for screening for malignant neoplasm of respiratory organs (principal); F17.210 Nicotine dependence, cigarettes, uncomplicated
CPT/HCPCS: 71271; G0296

== ENCOUNTER → 2025-09-25 10:26 | Outpatient (BNV) | payer OTHER, SELFPAY | PROVIDERS: PCP Nurse Practitioner Family; Visit Provider Radiology Diagnostic Radiology | DX: Z12.2 Encounter for screening for malignant neoplasm of respiratory organs (principal); Z87.891 Personal history of nicotine dependence; J43.9 Emphysema, unspecified; R91.8 Other nonspecific abnormal finding of lung field | CPT/HCPCS: 71271 ==

== ENCOUNTER 2025-10-02 08:13 | Outpatient (REF) | payer OTHER, SELFPAY ==
[2025-10-02 08:59] LABS: Alanine Aminotransferase 23 U/L (0-31); Albumin Level 4.6 g/dL (3.5-5.0); Alkaline Phosphatase 101 U/L (39-117); Anion Gap 13 (12-20); Aspartate Amino Transferase 27 U/L (5-31); Blood Urea Nitrogen 14 mg/dL (9-16); Calcium 9.8 mg/dL (8.4-10.2); Carbon Dioxide 27 mmol/L (22-29); Chloride 106 mmol/L (96-108); Cholesterol 201 mg/dL (<200); Estimated Glomerular Filt Rate > 60; HDL Cholesterol 37 mg/dL (>40); Potassium 5.7 mmol/L (3.3-5.1); Sodium 140 mmol/L (135-145); Total Protein 7.4 g/dL (6.5-8.0); Triglycerides 188 mg/dL (<150)
[2025-10-02 10:33] LABS: Microalbum/Creatinine Ratio Ur 9.2 ug/mg cr (<30)
== END 2025-10-02 08:14 | disposition home or self-care (01) ==
LOC: HO.LAB 08:13
PROVIDERS: Visit Provider Physician Assistant
DX: I10 Essential (primary) hypertension (principal); E11.8 Type 2 diabetes mellitus with unspecified complications; E78.2 Mixed hyperlipidemia
CPT/HCPCS: 36415; 80053; 80061; 82043; 82570; 83036

== ENCOUNTER 2025-10-09 10:15 | Outpatient (AMB) | payer OTHER, SELFPAY ==
[2025-10-09 10:17] VITALS: BP 180/100; PULSE 80; O2SAT 99; BMI 27.7
--- NOTE | 2025-10-09 10:17 | MHC.OFFVIS ---
Vital Signs 10/09/25 10:17 Height 5 ft 7 in Weight 176 lb 12.972 oz BMI 27.7 BP 180/100 H Blood Pressure Location Lt brachial Position Sitting Pulse 80 Pulse Source Pulse Oximeter Pulse Oximetry (%) 99 Oxygen Delivery Method Room Air Intake Visit Reasons: T2DM Intake Note: Patient present today for Type 2 Diabetes Mellitus Last Diabetic eye exam: Last exam was on 05/07/25 @ [facility] 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 Endo: She was diagnosed with diabetes around 2016. Around that time she was 259 lb and she has lost about 85 lb with diet and exercise. She was started on Trulicity at our last visit as she previously tolerated this well in the past. Her A1c came down to 6.2. She was previously tried glyburide but was ineffective and caused dizziness. She took her father's metformin a couple times and had GI upset. She was effectively treated with trulicity. Denies any hyper or hypoglycemic events She is up-to-date with ophthalmology and states that she does not have any changes in the eye. CV: Blood pressure today in the office is 180/100. She is not currently on any antihypertensives. She was prescribed lisinopril at our last visit but did not actually start it. She says that she has never been on antihypertensives but her blood pressure has been borderline in the past. She says when she was on Trulicity in the past that seemed like everything got better. [facility] Medical History (Updated 10/09/25 @ 10:53 by Mitra Davis PA-C) HTN (hypertension) History of ovarian cancer (~2010) Nicotine dependence, cigarettes, uncomplicated Arthritis Type 2 diabetes mellitus Surgical History History of left salpingo-oophorectomy History of right salpingo-oophorectomy History of appendectomy Family History Father High blood pressure Diabetes Mother Cancer Sleep apnea Maternal Grandfather Cancer Maternal Grandmother Cancer Social History Housing: Other (mobil home) Patient Tobacco Use Status: Current everyday Tobacco user Tobacco use type: Cigarette Cigarettes Per Day: 10 e-Cigarette/Vaping Use: Never Used Second Hand Smoke Exposure: No service: No Current occupational status: employed 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 Current occupational exposures/hazards: No Cognitive needs: No Hearing needs: No Vision needs: Yes Physical Exam Vital Signs: Last Vital Signs Pulse 80 10/09/25 10:17 BP 180/100 H 10/09/25 10:17 Pulse Ox 99 10/09/25 10:17 Oxygen Delivery Method Room Air 10/09/25 10:17 BMI result Body Mass Index 27.7 Const Orientation/consciousness: patient oriented x3 HEENT Ears: hearing grossly normal bilaterally Neck Thyroid: Thyroid normal Lymphatic: no lymphadenopathy noted Resp Auscultation: clear to auscultation bilaterally Cardio Rate: regular rate Rhythm: regular rhythm Heart sounds: S1 normal heart sound present and S2 normal heart sound present Skin General skin exam: no rashes or lesions noted Neuro General: patient oriented x3, gait normal and no focal motor deficits Results Reviewed Results Reviewed: Laboratory Last Values Glucose (Clinic) 128 mg/dL (60-115) H 10/09/25 10:27 Assessment & Plan Assessment & Plan (1) Diabetes mellitus type 2 with complications: Code(s): E11.8 - Type 2 diabetes mellitus with unspecified complications Category: Medical Plan: She will continue the Trulicity. Tolerating very well. We will start Trulicity. Discussed risks and benefits and adverse effects of this medication. She reports having testing supplies at home. We reviewed rule of 15 and how to treat low blood sugars. Reviewed signs and symptoms of hyper and hypoglycemia that would require emergent medical treatment (2) HTN (hypertension): Code(s): I10 - Essential (primary) hypertension Category: Medical Plan: Elevated today again. She is asymptomatic. We did discuss that having high blood pressure increases her risk of a stroke, heart attack, early etc.. Does not want to go to the ER to lower her blood pressure. She never started the lisinopril and review of her last labs did show hyperkalemia. I will have her not take the lisinopril. I did discuss this with her. I will recheck her kidney function today including her potassium. I will have her start amlodipine. We reviewed risks and benefits and adverse effects of this medication. Short term follow up arranged with PCP. (3) Hyperkalemia: Code(s): E87.5 - Hyperkalemia Category: Medical Plan: We will rechecked today Orders: Orders Basic Metabolic Panel Today E87.5 - Hyperkalemia, I10 - Essential (primary) hypertension Medications: New amlodipine 5 mg PO DAILY 90 tabs 0RF Refilled dulaglutide (Trulicity) 0.75 mg (0.5 mL) subcut QWEEK 6 mL 3RF Discontinued lisinopril Discontinued Reason: Duplicate 10 mg PO DAILY 90 tabs 0RF Coding Level of Care Code Est Pt Level 4 (82249) Complex visit Add On G2211 Diagnoses Diabetes mellitus type 2 with complications E11.8 HTN (hypertension) I10 Hyperkalemia E87.5
[2025-10-09 10:31] LABS: Glucose, Whole Blood 128 mg/dL (60-115)
== END 2025-10-09 10:46 | disposition home or self-care (01) ==
LOC: HO.ENCR 10:16
PROVIDERS: PCP Nurse Practitioner Family; Visit Provider Physician Assistant
DX: E11.8 Type 2 diabetes mellitus with unspecified complications (principal); I10 Essential (primary) hypertension; E87.5 Hyperkalemia

== ENCOUNTER → 2025-10-09 10:15 | Outpatient (BNVA) | payer OTHER, SELFPAY | PROVIDERS: PCP Nurse Practitioner Family; Visit Provider Physician Assistant | DX: I10 Essential (primary) hypertension (principal); E11.8 Type 2 diabetes mellitus with unspecified complications; E78.5 Hyperlipidemia, unspecified | CPT/HCPCS: 82947 ==

== ENCOUNTER 2025-10-09 10:50 | Outpatient (REF) | payer OTHER, SELFPAY ==
[2025-10-09 14:04] LABS: Anion Gap 13 (12-20); Blood Urea Nitrogen 14 mg/dL (9-16); Calcium 9.7 mg/dL (8.4-10.2); Carbon Dioxide 26 mmol/L (22-29); Chloride 106 mmol/L (96-108); Estimated Glomerular Filt Rate > 60; Potassium 4.9 mmol/L (3.3-5.1); Sodium 140 mmol/L (135-145)
== END 2025-10-09 10:51 | disposition home or self-care (01) ==
LOC: HO.10HDL 10:50
PROVIDERS: Visit Provider Physician Assistant
DX: I10 Essential (primary) hypertension (principal); E87.5 Hyperkalemia
CPT/HCPCS: 36415; 80048

== ENCOUNTER 2025-11-02 12:12 | Outpatient (AMB) | payer OTHER, SELFPAY ==
--- NOTE | 2025-11-02 12:25 | A.OFFPC_ITS ---
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 Required: No Allergies No Known Allergies Allergy (Verified 11/02/25 12:26) Medication List - Last Reconciled 11/02/25 by Jigna Anderson, CUSTOM SHOP WORKER- amlodipine 5 mg PO DAILY cetirizine 10 mg PO DAILY dulaglutide (Trulicity) 0.75 mg (0.5 mL) subcut QWEEK naproxen 500 mg PO BID PRN Tobacco use date assessed: 11/02/25 Dental Screening Dental Screen Date: 06/16/25 HPI HPI Comments History of Present Illness Details 55 Y/O f with DM2, cataracts, current sm oker, hx of ovarian cancer s/p chemo and surgery, HLD, HTN Social: current smoker; 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 Fhx: Dad Dm, Mom unknown [place], Sister x 2 alive, 1 son (transgender) 1 dtr Health Maintenance DME 05/2025 negative for retinoapthy [facility] Colon ordered today Mammo will get done at [facility] DEXA has never had, ordered today to be done at [place] Pap 2020 WNL Significant labs: Apo A low 124, Apo B high 132, CRP > 10 Lung [place] [facility] [place]2025 BiRads 2 EKG NSR PVC Vaccines: Declined [facility]ILITIES MANAGER [facility] Endo History of Present Illness The patient is a 55 year old female presenting for a routine disease management visit. Type 2 diabetes mellitus: - The patient's type 2 diabetes is manag ed by endocrinology and she is currently taking Trulicity. - Her last hemoglobin A1c on 10/02 was 6 .2%, an improvement from a prior value of 7.9%. - She reports feeling better with the im proved glycemic control. - She completed her diabetic eye exam, w hich was normal. Hypertension: - She was recently started on amlodipine 5 mg for hypertension by her adhesion tester and reports that her blood pressure is lower on the medication. - She declined a previous prescription f or a different antihypertensive due to concerns about side effects related to operating heavy machinery. - She experiences anxiety during blood p ressure measurements, which she feels elevates the readings. - Does not want a recheck today or an in crease in meds at this time Hyperlipidemia: - The patient has a history of hyperlipi demia and is not currently on a prescription medication. - She was advised to take Empire Bergamo t but admits to taking an incorrect dose. - She also takes beet chews daily. Tobacco Use: - The patient continues to smoke and rep orts an overall increase in use. - She notes that she smokes less in the cold and when she is alone, but more in social situations. Health Maintenance: - The patient declines the flu shot and other vaccines. - She completed a lung cancer screening last month which showed two small, benign-appearing nodules (Lung-RADS 2). - She has an upcoming screening colonosc opy on December 05 and an RECTANGULAR TANK COOPER appointment on December 23. - A bone density scan order has been james catrina but not scheduled, along w/ mammogram. Dionne - Her Pap smear is up to date based on a review of prior records. Past Medical History - Type 2 diabetes mellitus, managed with Trulicity - Hypertension, managed with amlodipine - Hyperlipidemia, not on medication - Tobacco use - Anxiety, particularly related to medic al settings - History of transient hyperkalemia, att ributed to lab error - Lung cancer screening revealed two sma ll, benign nodules (Lung-RADS 2) Review of Systems - General: Reports feeling generally wel l. - Psychiatric: Reports anxiety during bl ood pressure checks. - Extremities: Denies leg swelling. Physical Exam General: Well developed, well nourished, in no acute distress. Appears stated age. Head: Normocephalic, atraumatic. Eyes: Pupils are equal, round and reactive to light and accommodation. Conjunctivae are clear. Vision grossly normal. Lungs: Clear to auscultation bilaterally. No rales, rhonchi or wheeze noted. Good air flow in all dowell. Heart: Regular rate and rhythm. No murmurs, click, rubs or gallops are noted.. Musculoskeletal: Joints are nontender, without swelling, redness, or effusions. Pulses: Peripheral pulses are equal and palpable bilaterally. Extremities: No clubbing, cyanosis nor edema is noted. Psych: Mood and affect appropriate. Results - Laboratory: - Hemoglobin A1c (): 6.2%, impro navi from 7.9%. - A prior high potassium level was found to be normal on repeat testing, suggesting a lab error. - Comprehensive metabolic panel revealed normal calcium and liver function. - Lipid panel showed high cholesterol. - Imaging: - Low-dose CT lung cancer screening (): Showed two small nodules, categorized as Lung-RADS 2 (benign finding), with a recommendation for annual screening. - Tests: - Diabetic eye exam: Normal. - Pap smear: Up to date. Medical Decision Making The patient is a 55-year-old female here for a routine disease management visit with multiple chronic conditions that are largely managed by endocrinology. Her type 2 diabetes has shown significant improvement on [facility], with her A1c decreasing from 7.9% to 6.2%, which is excellent control. It is too soon to repeat the A1c today. Her hypertension is newly treated with amlodipine 5 mg, and since she has not been on it long, the current dosage will be maintained. I noted her history of white coat hypertension and educated her on the potential for peripheral edema as a common, benign side effect of amlodipine. Regarding her hyperlipidemia, she was non-adherent with the dosing of Empire Bergamot, and she has been re-instructed on the correct usage. Her continued tobacco use remains a concern, though her recent annual lung cancer screening was reassuring with Lung-RADS 2 findings. We reviewed her health maintenance needs, confirming upcoming appointments for colonoscopy and RECTANGULAR TANK COOPER. I will ensure orders are available for her bone density scan and mammogram. Given her multiple upcoming specialist appointments, we will schedule her next follow-up here in the summer, with labs to be drawn one week prior. Plan 1. Type 2 Diabetes Mellitus - Continue current management with [facility], as A1c has improved to 6.2%. - Follow up with endocrinology on January 08 for ongoing management. 2. Hypertension - Continue amlodipine 5 mg daily. - No dose adjustment at this time as the patient recently started the medication & she declined increase at this time - Educated the patient about the potenti al side effect of leg swelling and to report it if it becomes bothersome. - To be monitored at upcoming appts; pt aware of goal and need to fu sooner if BP remains elevated 3. Hyperlipidemia - Instructed to take the correct dosage of Empire Bergamot supplement. - Continue daily beet chew supplement as desired. - Labs including a lipid panel will be c hecked one week prior to the next follow-up visit. 4. Tobacco Use - Encouraged to reduce smoking, noting h er pattern of decreased use during winter months. - Continue with annual low-dose CT for l ceasar cancer screening; the recent screen was reassuring (Lung-RADS 2). 5. Health Maintenance - Patient to proceed with scheduled scre ening colonoscopy on December 05 and RECTANGULAR TANK COOPER appointment on December 23. - Patient advised to schedule her bone d ensity scan and mammogram, potentially together. - If issues arise with scheduling imagin g, patient to contact the office for assistance with referrals. - Orders for lab work have been placed f or one week before the next visit. - Schedule follow-up visit in this offic e for the summer (May 2026), CPE - Acknowledged patient's refusal of immu nizations. Patient Instructions - Continue taking your Trulicity for naren betes and amlodipine for high blood pressure as prescribed. - Please make sure you are taking the co rrect dose of your Empire Bergamot supplement for your cholesterol. - Amlodipine can sometimes cause leg swe lling. This is common and not usually dangerous, but please let us know if it happens and it bothers you. - Please keep your scheduled appointment s for your colonoscopy on December 05 and with your RECTANGULAR TANK COOPER on December 23. - Please call to schedule your bone dens ity scan and your mammogram. You can try to schedule them for the same day. - If you have trouble booking your bone density or mammogram, please contact our office for help. - Follow up with your adhesion tester on January 08. - An order for your next set of labs has been placed. Please have them done one week before your next appointment with us. - Please schedule a follow-up appointmen t in our office for this summer, around May. Consent Patient was informed and verbally consented to the use of an ambient scribe for clinic note documentation during this visit. Total time spent caring for the patient today was 30 minutes. This includes time spent before the visit reviewing the chart, time spent during the visit, and time spent after the visit on documentation, reviewing laboratory results, diagnostic imaging, medications, performing a medically necessary evaluation, counseling on diagnoses, care coordination, ordering appropriate tests, ordering appropriate medications, review of tests performed by other providers, reporting test results with the patient, communication with other healthcare providers. [facility] Medical History (Updated 11/02/25 @ 13:00 by Jigna Anderson [facility]) Arthritis History of ovarian cancer (~2010) HTN (hypertension) Hyperkalemia Nicotine dependence, cigarettes, uncomplicated Type 2 diabetes mellitus Surgical History History of appendectomy History of left salpingo-oophorectomy History of right salpingo-oophorectomy Family History Father High blood pressure Diabetes Mother Cancer Sleep apnea Maternal Grandfather Cancer Maternal Grandmother Cancer Social History Housing: Other (mob[place] home) Patient Tobacco Use Status: Current everyday Tobacco user Tobacco use type: Cigarette Cigarettes Per Day: 10 e-Cigarette/Vaping Use: Never Used Second Hand Smoke Exposure: No service: No Current occupational status: employed 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 Current occupational exposures/hazards: No Cognitive needs: No Hearing needs: No Vision needs: Yes Questionnaire Thrive Questionnaire Date Thrive assessed: 05/21/25 I am a: Patient What is your living situation today?: I have a steady place to live Within the past 12 months, did the food you bought not last and you didn't have the money to get more?: Never true Within the past 12 months, did you worry whether your food would run out before you got money to buy more?: Never true Do you have trouble paying for medicines?: I choose not to answer this question Do you have trouble getting transportation to medical appointments?: No Do you have trouble paying your heating and electricity bill?: No Do you have trouble taking care of your child, family member or friend?: No Do you have trouble with day-to-day activities such as bathing, preparing meals, shopping, managing finances, etc.?: No Are you currently unemployed and looking for a job?: No Are you interested in more education?: No Currently or been in a relationship where the following occur: No concerns reported THRIVE Score: 0 AUDIT C Alcohol Use Questionnaire (AUDIT-C) 1. How often do you have a drink containing alcohol?: Never 3. How often do you have six or more drinks on one occasion?: Never Total Score: 0 OLIVA-7 AMB Questionnaire OLIVA-7 Date OLIVA - 7 assessed: 06/16/25 Source: Developed by Drs. Jose Nielsen, Daphne Romero, Chilo Desouza and colleagues, with an educational mayra from [employer]. Physical exam (Primary Care) Vital Signs: Last Vital Signs Temp 98.1 F 11/02/25 12:27 Pulse 81 11/02/25 12:27 Resp 14 11/02/25 12:27 BP 171/81 H 11/02/25 12:32 Pulse Ox 98 11/02/25 12:27 Oxygen Delivery Method Room Air 11/02/25 12:27 BMI result Body Mass Index 27.9 Tobacco/Smoking Status: Tobacco use Status Tobacco use date assessed 11/02/25 11/02/25 12:33 Patient Tobacco Use Status Current everyday Tobacco 11/02/25 12:26 Tobacco use type Cigarette 11/02/25 12:26 e-Cigarette/Vaping Use Never Used 11/02/25 12:26 Are you ready to quit: No Tobacco cessation counseling provided: Yes Items discussed: Nicotine replacement, QuitWorks and Other Relapse Prevention: discussed the importance of a supportive environment, discussed extending NRT, discussed negative mood or depression after quitting, weight gain after smoking is common and discussed dietary, exercise and/or lifestyle changes Number of minutes spent counselin CPT code: 46022 - 4-10 Minutes Thrive Assessment: Date of Thrive Assessment Date Thrive assessed 05/21/25 11/02/25 12:26 Currently or been in a relationship where the following occur: No concerns reported Results Reviewed Results Reviewed: Laboratory 10/03/25 Result Units Range Interpretation Provider Comments Sodium Level 140 mmol/L (135-145) Potassium Level 5.7 mmol/L (3.3-5.1) Delta High Chloride Level 106 mmol/L (96-108) Carbon Dioxide Level 27 mmol/L (22-29) Anion Gap 13 (12-20) Blood Urea Nitrogen 14 mg/dL (9-16) Creatinine 0.63 mg/dL (0.5-1.4) Estimated Creatinine Clearance Calc Not Reportable Estimat Glomerular Filtration Rate > 60 Random Glucose 151 mg/dL (60-115) High Calcium Level 9.8 mg/dL (8.4-10.2) Total Bilirubin 0.6 mg/dL (0.0-1.0) Aspartate Amino Transf (AST/SGOT) 27 U/L (5-31) Alanine Aminotransferase (ALT/SGPT) 23 U/L (0-31) Alkaline Phosphatase 101 U/L (39-117) Total Protein 7.4 g/dL (6.5-8.0) Albumin 4.6 g/dL (3.5-5.0) Triglycerides Level 188 mg/dL (<150) High Cholesterol Level 201 mg/dL (<200) High LDL Cholesterol, Calculated 127 mg/dL (<100) High HDL Cholesterol 37 mg/dL (>40) Low Coding Level of Care Code Est Pt Level 4 (55435) Add On Problem Visit Only Diagnoses Primary hypertension I10 Hypertension type: primary hypertension Diabetes mellitus type 2 with complications E11.8 Mixed hyperlipidemia E78.2 Hyperlipidemia type: mixed hyperlipidemia High risk of cardiac event Z91.89 Nicotine dependence, cigarettes, uncomplicated F17.210 Screening for lung cancer Z12.2 Influenza vaccination declined Z28.21 Tetanus, diphtheria, and acellular pertussis (Tdap) vaccination declined Z28.21 Additional Codes Vital Signs *Quality* - CPT code: 05052 - 4-10 Minutes ([id number]) Assessment & Plan Assessment & Plan (1) HTN (hypertension): Comment: Beet Extract and Oil of Oregano to help Prefers natural methods Code(s): I10 - Essential (primary) hypertension Category: Medical Qualifiers: Hypertension type: primary hypertension Qualified Code(s): I10 - Essential (primary) hypertension (2) Diabetes mellitus type 2 with complications: Comment: HTN and HLD Code(s): E11.8 - Type 2 diabetes mellitus with unspecified complications Category: Medical (3) HLD (hyperlipidemia): Comment: will trial citrus bergamot Code(s): E78.5 - Hyperlipidemia, unspecified Category: Medical Qualifiers: Hyperlipidemia type: mixed hyperlipidemia Qualified Code(s): E78.2 - Mixed hyperlipidemia (4) High risk of cardiac event: Comment: Apo A low 124, Apo B high 132, CRP > 10 Code(s): Z91.89 - Other specified personal risk factors, not elsewhere classified Category: Medical (5) Nicotine dependence, cigarettes, uncomplicated: Comment: (onset 11yo, 3/4-1ppd x 44yrs, 35pyh) Code(s): F17.210 - Nicotine dependence, cigarettes, uncomplicated Category: Medical (6) Screening for lung cancer: Onset Date: ~09/2025 Comment: 09/25/25 LDCT = Lung-RADS 2: Benign - plan is annual LDCT Code(s): Z12.2 - Encounter for screening for malignant neoplasm of respiratory organs Category: Medical (7) Influenza vaccination declined: Onset Date: ~11/02/25 Code(s): Z28.21 - Immunization not carried out because of patient refusal Category: Medical (8) Tetanus, diphtheria, and acellular pertussis (Tdap) vaccination declined: Onset Date: ~11/02/25 Code(s): Z28.21 - Immunization not carried out because of patient refusal Category: Medical Plan , Orders: Orders Lipid Panel 05/05/26 Z00.00 - Encounter for general adult medical examination without abnormal findings Vitamin D 25-OH Total 05/05/26 Z00. - Encounter for general adult medical examination without abnormal findings Complete Blood Count no Diff 05/05/26 Z00.00 - Encounter for general adult medical examination without abnormal findings Comprehensive Met. Panel 05/05/26 Z. - Encounter for general adult medical examination without abnormal findings Microalbumin, Random (w Creat) 05/05/26 Z00. - Encounter for general adult medical examination without abnormal findings Vitamin B12 and Folate 05/05/26 Z00.00 - Encounter for general adult medical examination without abnormal findings
[2025-11-02 12:27] VITALS: BP 159/77; PULSE 81; RESP 14; TEMP 36.7; O2SAT 98; BMI 27.9
[2025-11-02 12:32] VITALS: BP 171/81
== END 2025-11-02 12:58 | disposition home or self-care (01) ==
LOC: HO.HMCFM 12:12
PROVIDERS: PCP Nurse Practitioner Family; Visit Provider Nurse Practitioner Family
DX: I10 Essential (primary) hypertension (principal); E11.8 Type 2 diabetes mellitus with unspecified complications; E78.2 Mixed hyperlipidemia; Z91.89 Other specified personal risk factors, not elsewhere classified; F17.210 Nicotine dependence, cigarettes, uncomplicated; Z12.2 Encounter for screening for malignant neoplasm of respiratory organs; Z28.21 Immunization not carried out because of patient refusal

== ENCOUNTER 2025-11-04 08:49 | Outpatient (AMB) | payer OTHER, SELFPAY ==
--- NOTE | 2025-11-04 08:51 | A.OFFVIS_ITS ---
Vital Signs 11/04/25 08:56 Height 5 ft 7 in Weight 176 lb BMI 27.6 BP 156/94 H Blood Pressure Location Rt brachial Position Sitting Pulse 84 Pulse Source Pulse Oximeter Pulse Oximetry (%) 99 Oxygen Delivery Method Room Air Intake Visit Reasons: Colon screen Intake Note: New pt for initial colo screening. CC; Pt denies any GI sx or concerns at this time. No pertinent surgical or FMHx. 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 female with past medical history of hypertension, hyperlipidemia, diabetes, ovarian cancer is here today for pre colonoscopy screening.? Patient was sent to us by her PCP.? This is her first colonoscopy screening.? Patient denies any gastrointestinal symptoms in the past or at present.? Denies any personal or family history of gastrointestinal disease, colon polyps, or CRC.? Denies history of difficulty with sedation or anesthesia in the past.? Negative for history of sleep apnea.? Denies any history of cardiac, renal, pulmonary, or hepatic disease.?? No history of infectious? diseases like hepatitis A, B, C, HIV or tuberculosis.? Patient is not on any anticoagulation [facility] Medical History Hyperkalemia HTN (hypertension) History of ovarian cancer (~2010) Nicotine dependence, cigarettes, uncomplicated Arthritis Type 2 diabetes mellitus Surgical History History of left salpingo-oophorectomy History of right salpingo-oophorectomy History of appendectomy Family History (Updated 11/04/25 @ 08:56 by ELIZABETH Santo) Father High blood pressure Diabetes Mother Cancer Sleep apnea Maternal Grandfather Lung cancer Cancer Maternal Grandmother Lung cancer Cancer Social History Housing: Other ([facility]) Patient Tobacco Use Status: Current everyday Tobacco user Tobacco use type: Cigarette Cigarettes Per Day: 10 e-Cigarette/Vaping Use: Never Used Second Hand Smoke Exposure: No service: No Current occupational status: employed 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 Current occupational exposures/hazards: No Cognitive needs: No Hearing needs: No Vision needs: Yes Review of Systems Const Denies weight gain and Denies weight loss ENT Reports no additional complaints, Denies dysphagia and Denies odynophagia Card Reports no additional complaints Resp Reports no additional complaints GI Denies abdominal pain, Denies belching, Denies melena, Denies bloating, Denies change in bowel habits, Denies dysphagia, Denies excessive flatus, Denies dyspepsia, Denies heartburn, Denies diarrhea, Denies loose stools, Denies nausea, Denies odynophagia and Denies vomiting Musc Reports no additional complaints Neuro Reports no additional complaints Psych Reports no additional complaints Endo Reports no additional complaints Physical Exam Vital Signs: BMI result Body Mass Index 27.6 Const General: healthy appearing, no acute distress and well developed Nutritional Appearance: well nourished Orientation/consciousness: patient oriented x3 Resp Effort & Inspection: normal respiratory effort, able to speak in complete sentences, no tracheal deviation and symmetric chest movement Auscultation: clear to auscultation bilaterally Cardio Rate: regular rate GI Inspection: Yes normal to inspection and No distended Palpation (GI): Soft to palpation, not firm, nontender and No hepatosplenomegaly present Auscultation: normal bowel sounds General: Yes no CVA tenderness Back/Spine/Pelvis Back: no CVA tenderness Skin General skin exam: elasticity normal, turgor normal and dry skin Neuro General: patient oriented x3 Psych Appearance: grossly normal Mental Status: mental status grossly normal Assessment & Plan Assessment & Plan (1) Screen for colon cancer: Code(s): Z12.11 - Encounter for screening for malignant neoplasm of colon Plan Patient denies any GI, cardiac or respiratory symptoms.? Denies any issues with anesthesia in the past.? Denies any history of sleep apnea.? No history infectious diseases in the past or present.? Not on any anticoagulation therapy.? No family of colon cancer.? Patient denies melena, hematochezia, unintentional weight loss or ribbon like stools.? Discussed at length the pre- procedure,? prep, diet & medications as well as what to expect prior, during and after the procedure.?? Stressed the importance of good bowel prep.? Recommended the use of Vaseline or Calmoseptine OTC & baby wipes with bowel movements to promote comfort.? ?Patient verbalizes understanding and agrees to plan of care.? She was given the opportunity to ask questions and all questions answered.? We will see her after the procedure.? Orders: Referrals GI Procedure Notification Z12.11 - Encounter for screening for malignant neoplasm of colon Medications: New bisacodyl (Dulcolax (bisacodyl)) take 4 tabs at noon the day before your colonoscopy 20 mg (4 x 5 mg) PO ONCE 4 tabs 0RF constipation 1 day Z12.11 - Encounter for screening for malignant neoplasm of colon polyethylene glycol 3350 (Miralax) As directed by gastro[facility]ology department at [facility] 238 grams PO ONCE 238 grams 0RF Z12.11 - Encounter for screening for malignant neoplasm of colon Coding Level of Care Code New Pt Level 3 (37996) Diagnoses Screen for colon cancer Z12.11 Time Spent (min) 40 Comment 30 minutes spent with patient and additional 10 minutes spent reviewing her records
[2025-11-04 08:56] VITALS: BP 156/94; PULSE 84; O2SAT 99; BMI 27.6
== END 2025-11-04 09:45 | disposition home or self-care (01) ==
LOC: HO.HGI 08:50
PROVIDERS: PCP Nurse Practitioner Family; Visit Provider Nurse Practitioner Family
DX: Z01.818 Encounter for other preprocedural examination (principal); Z12.11 Encounter for screening for malignant neoplasm of colon
CPT/HCPCS: 99202